=== PATIENT | male | born 1950 | race Caucasian/White ===

== ENCOUNTER 2016-05-21 08:01 | Inpatient (IN) | payer OTHER ==
--- NOTE | 2016-05-04 10:41 | PAT Medication Instructions ---
Service Date May 04, 2016. Current Home Medication List Aspirin (Aspirin Ec), 81 MG PO QAM Lisinopril (Zestril), 20 MG PO QAM Lisinopril/Hctz (Zestoretic 20MG/12.5MG), 1 TAB PO QAM Meloxicam (Mobic), 15 MG PO QPM Medication Instructions For Your Scheduled Surgery Meloxicam (Mobic), 15 MG PO QPM (will finish prior to surgery) Aspirin (Aspirin Ec), 81 MG PO QAM (hold 1 week prior to surgery per surgeon instructions) - Hold the following medications the morning of surgery: Lisinopril/Hctz (Zestoretic 20MG/12.5MG), 1 TAB PO QAM Lisinopril (Zestril), 20 MG PO QAM If you have any questions please call us at [phone] or [phone] ( Sharri) or [phone]
--- NOTE | 2016-05-04 11:25 | DIAGNOSTIC IMAGING REPORT ---
CHEST PREADMISSION(PA/LAT) CLINICAL HISTORY: Preoperative evaluation. COMPARISON STUDY: No previous studies for comparison. FINDINGS: Lung volumes are normal. Lungs are clear. There is no pneumothorax or pleural effusion. Cardiac size is normal. Mediastinal contours are normal. There is no evidence of pulmonary edema. IMPRESSION: No acute cardiopulmonary findings. Electronically signed by: Domingo Jovel M.D. 05/04/2016 11:24 AM Dictated Date/Time: 05/04/2016 11:24 AM
[2016-05-04 11:43] LABS: BASO % 0.5 %; BASO ABS # 0.03 K/uL (0-0.2); COMPLETE YES; EOS % 3.7 %; HEMATOCRIT 44.8 % (42-52); IG% 0.3 %; LYMPH % 16.2 %; LYMPH ABS # 1.02 K/uL (1.2-3.4); MEAN CELL VOLUME 94.3 fL (80-100); MEAN CORPUSCULAR HEMOGLOBIN 33.7 pg (25-34); MEAN CORPUSCULAR HGB CONC 35.7 g/dl (32-36); MEAN PLATELET VOLUME 9.3 fL (7.4-10.4); MONO % 7.8 %; NEUT % 71.5 %; PLATELET COUNT 226 K/uL (130-400); RED BLOOD COUNT 4.75 M/uL (4.7-6.1); WHITE BLOOD COUNT 6.29 K/uL (4.8-10.8)
[2016-05-04 11:52] LABS: URINE APPEARANCE CLEAR (CLEAR); URINE BILIRUBIN NEG (NEG); URINE COLOR YELLOW; URINE NITRITE NEG (NEG); URINE SPECIFIC GRAVITY 1.007 (1.000-1.030); UROBILINOGEN NEG (NEG)
[2016-05-04 11:56] LABS: PROTHROMBIN TIME (PATIENT) 10.8 SECONDS (9.0-12.0)
[2016-05-04 12:02] LABS: BUN/CREATININE RATIO 16.2 (10-20); CALCIUM 9.5 mg/dl (8.5-10.1); CREATININE 1.1 mg/dl (0.60-1.40); POTASSIUM 4.1 mmol/L (3.5-5.1)
[2016-05-04 12:27] LABS: MANUAL MICROSCOPIC REQUIRED? NO; REVIEW REQ? NO
[2016-05-04 12:40] LABS: ESTIMATED AVERAGE GLUCOSE 100 mg/dl; HA1C FLAG Normal (Normal)
--- NOTE | 2016-05-20 10:22 | HISTORY & PHYSICAL EXAMINATION ---
DATE OF ADMISSION: 05/21/2016 CHIEF COMPLAINT: Right hip pain. HISTORY OF PRESENT ILLNESS: The patient is a 66-year-old gentleman seen and evaluated for severe right hip pain and disability. X-rays reveal severe osteoarthritis about the right hip. He takes tramadol for pain. He continues to have pain with activities of daily living. He has pain with prolonged weightbearing and standing activities. He has difficulty with any kneeling, bending, or squatting activities. He now desires to proceed with right total hip arthroplasty. PAST MEDICAL HISTORY: White coat hypertension, colonic polyps, obesity, hypertension. PAST SURGICAL HISTORY: Hernia repair as a child, colonoscopy. MEDICATIONS: Tramadol 50 mg 2 tabs q. 6 hours p.r.n. pain, Prinivil 20 mg daily, lisinopril/HCTZ 20/12.5 daily, amlodipine daily, aspirin 81 mg daily. ALLERGIES: No known drug allergies. SOCIAL HISTORY AND REVIEW OF SYSTEMS: Noncontributory. PHYSICAL EXAMINATION: GENERAL: Well-nourished, well-developed male who appears his stated age. HEAD, EYES, EARS, NOSE, AND THROAT: Normocephalic, atraumatic, extraocular movements intact, oropharynx pink and moist. NECK: Supple without adenopathy. LUNGS: Clear to auscultation bilaterally. HEART: Regular rate and rhythm. ABDOMEN: Soft, nontender, nondistended. EXTREMITIES: The upper extremities are within normal limits. The right hip demonstrates limited range of motion. There is severe limitation of internal/external rotation with pain at end range. X-RAYS: X-rays were reviewed. He has severe osteoarthritis about the right hip with complete loss of the joint space. There is evidence of subchondral sclerosis. There is osteophyte formation about the femoral head and acetabulum. ASSESSMENT: Right hip degenerative joint disease. PLAN: Risks versus benefits were discussed. Consent was obtained. The patient's primary care physician is Jerry Espana PA-C from [facility]. Will proceed with right total hip arthroplasty upon preoperative workup and medical clearance.
[~2016-05-21] VITALS: Ht 170.2 cm; Wt 87.0 kg
[2016-05-21] VITALS (10 sets, daily range): BP systolic 95–187; BP diastolic 62–88; PULSE 71–97; TEMP 36.3–36.7; O2SAT 95–100; Ht 170.2 cm; Wt 87.0 kg
[~2016-05-21 08:01] MED LIST: ACETAMINOPHEN 500 MG TAB PO SCH; AMLO5TAB2 PO; ASPI81TA28 PO; BUPIVACAINE 0.5 % 5 MG/1 ML PF 10ML VIAL ONE; CEFAZOLIN 2000 MG/60 ML D5W 60 ML IV SCH; CeleBREX 200 MG CAP PO SCH; DEXAMETHASONE 4 MG TAB PO SCH; FAMOTIDINE 20 MG TAB PO SCH; GABAPENTIN 300 MG CAP PO SCH; LACTATED RINGER'S 1000ML 1,000 ML IV SCH; LACTATED RINGER'S 1000ML IV SCH; LISI-725 PO; LISI-787 PO; MELO7.5T5 PO; METOCLOPRAMIDE HCL 10 MG TAB PO SCH; MIDAZOLAM HCL 1 MG/ML 2ML VIAL ONE; OXYCODONE HCL 10 MG TABCR (OXYCONTIN) PO SCH; ROPIVACAINE 5MG/ML 30 ML 150 MG, BUPIVACAINE/EPINEPHR 0.5% MPF 30 ML, KETOROLAC TROMETH... INFIL SCH; TRAM-10 PO
[2016-05-21] MEDS ORDERED: FENTANYL CITRATE INJ 50 MCG/1 ML 2 ML VIAL IV PRN (08:45)
[2016-05-21] MEDS ORDERED: ATROPINE SULFATE 0.1 MG/ML 5ML SYR IV PRN (08:45)
[2016-05-21] MEDS ORDERED: ONDANSETRON INJ 2 MG/ML 2 ML VIAL IV PRN ×2 (08:45→11:30)
[2016-05-21] MEDS ORDERED: EpHEDrine SULFATE INJ 50 MG/ML AMP IV PRN (08:45)
--- NOTE | 2016-05-21 09:10 | History & Physical Bridge Note ---
H&P Re-Evaluation Bridge Note: I have examined the patient, reviewed the History & Physical and in the interval since the performance of the History & Physical I have noted the following changes of clinical significance: No changes noted
[2016-05-21] MEDS: TRANEXAMIC ACID INJ 1,000 MG in SODIUM CHLORIDE 0.9% 100ML 100 ML IV SCH ×2 (09:18→14:06)
[2016-05-21] MEDS ORDERED: BACITRACIN 50000 UNIT VIAL ONE (09:36)
[2016-05-21] MEDS ORDERED: ORTHO JOINT ANESTHETIC ONE (09:36)
[2016-05-21] MEDS ORDERED: POVIDONE-IODINE OP SOLN 30 ML BTL ONE (09:36)
[2016-05-21] MEDS ORDERED: PROPOFOL IV EMULSION 10 MG/ML 20 ML VIAL IV ONE (10:21)
[2016-05-21] MEDS ORDERED: PHENYLEPHRINE 100MCG/ML 5ML SYR ONE (10:21)
[2016-05-21] MEDS ORDERED: EpHEDrine SULFATE 50MG/5ML SYR ONE (10:31)
[2016-05-21] MEDS ORDERED: PHENYLEPHRINE HCL INJ 10 MG/ML VIAL ONE (10:39)
--- NOTE | 2016-05-21 10:54 | [facility] Post Operative Brief Note ---
Immediate Operative Summary Operative Date May 21, 2016. Pre-Operative Diagnosis Right hip degenerative joint disease Post-Operative Diagnosis same as preoperative diagnosis Procedure(s) Performed Right Total Hip Arthroplasty uncemented Surgeon Dr. Werner Sheep Boner Surgeon(s) Norman Holguin PA-C Estimated Blood Loss 80ml Findings severe OA Specimens A. Right femoral head Disposition Recovery Room / PACU
--- NOTE | 2016-05-21 11:04 | OPERATIVE REPORT ---
DATE OF OPERATION: 05/21/2016 PREOPERATIVE DIAGNOSIS: Osteoarthritis right hip. POSTOPERATIVE DIAGNOSIS: Osteoarthritis right hip. PROCEDURE: Right connective total hip arthroplasty. SURGEON: Dr. Werner. PRODUCE RUNNER: Norman Holguin PA-C. ANESTHESIA: Spinal. COMPLICATIONS: None. OPERATION AND FINDINGS: PROCEDURE: Following induction of adequate spinal anesthesia, the patient was placed in left lateral decubitus position and right Ganesh-Langenbeck incision was made. Subcutaneous tissue was sharply dissected. Electrocautery used for hemostasis. The fascia was incised throughout the length of the wound and a engle scissor placed beneath the short external rotators. The pyriformis was tagged with #1 Vicryl. The short external rotators were divided from the posterior aspect of the femur using electrocautery. These were swept posteriorly. A T-capsulotomy incision was made and the hip was dislocated using a combination of flexion, adduction, and internal rotation. Exposure of the femoral neck with old-style Hohmann and a blunt Hohmann was carried out and a femoral rasp was utilized as a guide for making the appropriate level femoral neck cut. This bone fragment was removed and reserved on the back table. Next, attention was turned to the acetabulum where bone hook was used to retract the femur while the offset retractors were placed anterior and posteriorly. A double-angled Hohmann was placed in superior and anterior position exposing the acetabulum nicely. Acetabular labrum as well as posterior capsule elements were removed using a long knife and a long pickup. Fovea centralis was cleared of all soft tissue. Sequential reamings were carried up to a size 54 and decision was made to proceed with impaction of a size 54 trabecular metal cup. This was impacted and held using a single 35 mm bone screw. The acetabular liner was placed with 15 of elevated posterior wall in the superior and posterior position. Next, attention was turned to the femoral portion of the case where a Bovie and pickup was used to further clear short external rotators from their insertion on the femur. Box osteotome was used to gain access to the femoral canal and the T-handled rasp and a rattail rasp were used to further open and lateral the canal. Sequentially raspings were carried up to a size 5 which gave good fit and fill of the proximal femur. A trial reduction was carried out and size 5 offset femoral neck component was chosen as the size to be used. A -5 x 36 mm ceramic femoral head was impacted into position, +0 head was utilized. The trial reduction was stable in all degrees of rotation with no [id number] impingement. The hip was dislocated. The trial components were removed and the final femoral stem, neck, and femoral head combination were assembled on the back table and impacted into position. Hip was relocated. Range of motion checked once again successful and the wound was irrigated. The pyriformis repaired to the greater trochanter using #1 Vicryl [id number] suture. A Hemovac drain was placed and the fascia was closed using #1 Vicryl, subcutaneous tissue was closed using 0 Dexon, and skin was closed with valarie. Sterile dressing of Adaptic, 4 x 4's, ABDs, and foam tape was applied. The patient tolerated the procedure well. Recovery room stable. Due to the complex nature of the procedure, the entire surgery was performed with the operational assistance of Norman Holguin PA-C. The assistant in nursing, under direct supervision, was involved in the actual performance of all aspects of the surgical procedure including hemostasis, tissue retraction and incision, instrument management, patient positioning, and wound closure. I attest to the content of the Intraoperative Record and any orders documented therein. Any exceptio ns are noted below.
[2016-05-21] MEDS ORDERED: MAGNESIUM HYDROXIDE SUSP 30 ML UDC PO PRN (11:30)
[2016-05-21] MEDS ORDERED: DiphenhydrAMINE HCL 50 MG/ML VIAL IV PRN (11:30)
[2016-05-21] MEDS ORDERED: MoRPHine SULFATE 2 MG/ML CARP IV PRN (11:30)
[2016-05-21] MEDS ORDERED: ZOLPIDEM TARTRATE 5 MG TAB PO PRN (11:30)
[2016-05-21] MEDS ORDERED: TAMSULOSIN HCL 0.4 MG CAP PO PRN (11:30)
[2016-05-21] MEDS ORDERED: BISACODYL 10 MG SUPP PR PRN (11:30)
[2016-05-21] MEDS ORDERED: ALUMINUM/MAGNESIUM/SIMETH (MAALOX MAX) 30 ML UDC PO PRN (11:30)
--- NOTE | 2016-05-21 11:57 | DIAGNOSTIC IMAGING REPORT ---
AP PELVIS, CROSSTABLE LATERAL RIGHT HIP History: Right total hip arthroplasty. Degenerative arthritis. Postop. FINDINGS: The patient is status post a right total hip arthroplasty. The hardware is intact. No fracture or dislocation. Skin valarie and surgical drains are in place. IMPRESSION: Right total hip arthroplasty. No evidence for hardware complication Electronically signed by: Norman Alexander M.D. 05/21/2016 11:56 AM Dictated Date/Time: 05/21/2016 11:55 AM
[2016-05-21] MEDS ORDERED: MoRPHine SULFATE 10 MG/ML CARP/VIAL IV PRN (13:15)
[2016-05-21] MEDS ORDERED: MoRPHine SULFATE 4 MG/ML 1 ML CARP\\VIAL IV PRN (13:15)
[2016-05-21] MEDS: FERROUS GLUCONATE 324 MG TAB PO SCH ×2 (13:58→17:21)
[2016-05-21] MEDS: D5W AND 1/2NSS + 20MEQ KCL 1,000 ML IV SCH (13:58)
[2016-05-21] MEDS: ACETAMINOPHEN 500 MG TAB PO SCH ×2 (14:06→22:29)
--- NOTE | 2016-05-21 14:22 | Anesthesiology Progress Note ---
Anesthesia Post Op Note Date & Time May 21, 2016 at 14:22 Vital Signs Pain Intensity: 1.0 Vital Signs Past 12 Hours Date Time Temp Pulse Resp B/P Pulse Ox O2 Delivery O2 Flow Rate FiO2 05/21/16 14:10 98 Nasal Cannula 2.0 05/21/16 13:55 36.4 86 16 134/78 98 Nasal Cannula 2.0 85 05/21/16 13:02 71 18 95/62 100 Nasal Cannula 3.0 05/21/16 12:30 99 Nasal Cannula 3.0 05/21/16 12:30 36.4 74 16 99/63 99 Nasal Cannula 3.0 05/21/16 12:24 36.9 05/21/16 12:22 71 16 100 05/21/16 12:22 71 16 05/21/16 12:19 116/73 05/21/16 12:17 74 19 100 05/21/16 12:17 75 19 05/21/16 12:14 116/71 05/21/16 12:12 70 17 100 05/21/16 12:12 71 17 05/21/16 12:09 91/73 05/21/16 12:07 71 17 05/21/16 12:07 71 17 100 05/21/16 12:04 138/70 05/21/16 12:02 69 16 100 05/21/16 12:02 69 16 05/21/16 11:57 70 15 100 05/21/16 11:57 70 15 05/21/16 11:54 120/86 05/21/16 11:52 70 17 100 05/21/16 11:52 70 17 05/21/16 11:51 36.9 05/21/16 11:50 73 18 05/21/16 11:50 73 18 100 05/21/16 11:49 126/72 05/21/16 11:45 80 20 05/21/16 11:45 81 20 100 05/21/16 11:44 109/94 05/21/16 11:40 84 18 104/68 05/21/16 11:40 85 18 104/68 100 05/21/16 11:35 76 19 100 05/21/16 11:35 75 19 05/21/16 11:34 107/62 05/21/16 11:30 Nasal Cannula 3 2/23/17 11:30 77 18 05/21/16 11:30 77 18 100 05/21/16 11:29 103/63 05/21/16 11:25 80 05/21/16 11:25 80 20 100 05/21/16 11:24 122/63 05/21/16 11:20 36.4 80 16 99/61 100 Mask 10 05/21/16 11:20 81 20 100 05/21/16 11:20 81 05/21/16 08:30 36.7 97 20 187/88 97 Room Air Notes Mental Status: alert / awake / arousable, participated in evaluation Pt Amnestic to Procedure: Yes Nausea / Vomiting: adequately controlled Pain: adequately controlled Airway Patency, RR, SpO2: stable & adequate BP & HR: stable & adequate Hydration State: stable & adequate Neuraxial Anesthesia: was administered, sensory block is resolving Anesthetic Complications: no major complications apparent
[2016-05-21] MEDS: OXYCODONE HCL IR 5 MG TAB (IMMEDIATE RELEASE) PO PRN ×2 (17:02→21:12)
[2016-05-21] MEDS: CEFAZOLIN IV 2,000 MG in DEXTROSE 5% 50ML 50 ML IV SCH (17:21)
[2016-05-21] MEDS: DOCUSATE SODIUM 100 MG CAP PO SCH (21:10)
[2016-05-21] MEDS: ASPIRIN 81 MG ECTAB PO SCH (21:10)
[2016-05-21] MEDS: SENNA 8.6 MG TAB PO SCH (21:11)
[2016-05-22] VITALS (7 sets, daily range): BP systolic 150–155; BP diastolic 74–91; PULSE 66–78; TEMP 36.4–36.7; O2SAT 96–100
[2016-05-22] MEDS: D5W AND 1/2NSS + 20MEQ KCL 1,000 ML IV SCH (00:01)
[2016-05-22] MEDS: CEFAZOLIN IV 2,000 MG in DEXTROSE 5% 50ML 50 ML IV SCH (02:00)
[2016-05-22] MEDS: OXYCODONE HCL IR 5 MG TAB (IMMEDIATE RELEASE) PO PRN ×2 (02:05→13:52)
[2016-05-22] MEDS: ACETAMINOPHEN 500 MG TAB PO SCH ×3 (05:48→21:50)
[2016-05-22 05:57] LABS: COMPLETE YES; HEMATOCRIT 37.2 % (42-52); IG% 0.2 %; LYMPH % 4.4 %; LYMPH ABS # 0.63 K/uL (1.2-3.4); MEAN CELL VOLUME 91.4 fL (80-100); MEAN CORPUSCULAR HEMOGLOBIN 32.9 pg (25-34); MEAN PLATELET VOLUME 8.9 fL (7.4-10.4); MONO % 8.5 %; NEUT % 86.9 %; PLATELET COUNT 225 K/uL (130-400); RED BLOOD COUNT 4.07 M/uL (4.7-6.1); WHITE BLOOD COUNT 14.25 K/uL (4.8-10.8)
[2016-05-22 06:30] LABS: BUN/CREATININE RATIO 15.9 (10-20); CALCIUM 8.7 mg/dl (8.5-10.1); CREATININE 0.91 mg/dl (0.60-1.40); POTASSIUM 4.4 mmol/L (3.5-5.1)
--- NOTE | 2016-05-22 07:50 | Orthopedic Progress Note ---
Orthopedic Progress Note Date of Service May 22, 2016. Subjective Post OP Day: 1 Reports: feeling well Objective N/V intact, dressing C/D/I (Hemovac in place), toes mobile Date Time Temp Pulse Resp B/P Pulse Ox O2 Delivery O2 Flow Rate FiO2 05/22/16 03:28 36.7 78 18 155/91 98 Room Air 05/22/16 00:00 98 Room Air 05/21/16 23:18 36.4 78 18 159/87 97 Nasal Cannula 2.0 05/21/16 22:06 36.4 73 17 141/82 95 Nasal Cannula 2.0 05/21/16 19:40 Nasal Cannula 2.0 05/21/16 18:27 36.4 92 16 165/84 97 Nasal Cannula 2.0 05/21/16 15:32 36.3 88 17 124/86 96 Nasal Cannula 3.0 05/21/16 14:30 90 16 135/81 99 05/21/16 14:10 98 Nasal Cannula 2.0 05/21/16 13:55 36.4 86 16 134/78 98 Nasal Cannula 2.0 85 05/21/16 13:02 71 18 95/62 100 Nasal Cannula 3.0 05/21/16 12:30 99 Nasal Cannula 3.0 05/21/16 12:30 36.4 74 16 99/63 99 Nasal Cannula 3.0 05/21/16 12:24 36.9 05/21/16 12:22 71 16 100 05/21/16 12:22 71 16 05/21/16 12:19 116/73 05/21/16 12:17 74 19 100 05/21/16 12:17 75 19 05/21/16 12:14 116/71 05/21/16 12:12 70 17 100 05/21/16 12:12 71 17 05/21/16 12:09 91/73 05/21/16 12:07 71 17 05/21/16 12:07 71 17 100 05/21/16 12:04 138/70 05/21/16 12:02 69 16 100 05/21/16 12:02 69 16 05/21/16 11:57 70 15 100 05/21/16 11:57 70 15 05/21/16 11:54 120/86 05/21/16 11:52 70 17 100 05/21/16 11:52 70 17 05/21/16 11:51 36.9 05/21/16 11:50 73 18 05/21/16 11:50 73 18 100 05/21/16 11:49 126/72 05/21/16 11:45 80 20 05/21/16 11:45 81 20 100 05/21/16 11:44 109/94 05/21/16 11:40 84 18 104/68 05/21/16 11:40 85 18 104/68 100 05/21/16 11:35 76 19 100 05/21/16 11:35 75 19 05/21/16 11:34 107/62 05/21/16 11:30 Nasal Cannula 3 05/21/16 11:30 77 18 05/21/16 11:30 77 18 100 05/21/16 11:29 103/63 05/21/16 11:25 80 05/21/16 11:25 80 20 100 05/21/16 11:24 122/63 05/21/16 11:20 36.4 80 16 99/61 100 Mask 10 05/21/16 11:20 81 20 100 05/21/16 11:20 81 05/21/16 08:30 36.7 97 20 187/88 97 Room Air Laboratory Results 24 Hours: Test 05/22/16 05:46 White Blood Count 14.25 K/uL Red Blood Count 4.07 M/uL Hemoglobin 13.4 g/dL Hematocrit 37.2 % Mean Corpuscular Volume 91.4 fL Mean Corpuscular Hemoglobin 32.9 pg Mean Corpuscular Hemoglobin Concent 36.0 g/dl Platelet Count 225 K/uL Mean Platelet Volume 8.9 fL Neutrophils (%) (Auto) 86.9 % Lymphocytes (%) (Auto) 4.4 % Monocytes (%) (Auto) 8.5 % Eosinophils (%) (Auto) 0.0 % Basophils (%) (Auto) 0.0 % Neutrophils # (Auto) 12.38 K/uL Lymphocytes # (Auto) 0.63 K/uL Monocytes # (Auto) 1.21 K/uL Eosinophils # (Auto) 0.00 K/uL Basophils # (Auto) 0.00 K/uL Assessment & Plan Assessment: 66 yo male stable POD #1 s/p right HUGH Plan: 1. Med management 2. DVT prophylaxis- ASA, TEDs, SCDs 3. PT/OT 4. D/C planning- home w/ HH
--- NOTE | 2016-05-22 07:52 | Discharge Instructions ---
Discharge Instructions Admission Reason for Admission: Right Hip Osteoarthritis Discharge Discharge Diagnosis / Problem: Right hip arthritis Discharge Goals Goal(s): Decrease discomfort, Improve function Activity Recommendations Activity Limitations: as noted below Weightbearing Status: Right weightbearing (as tolerated) . Instructions / Follow-Up Instructions / Follow-Up ACTIVITY RECOMMENDATIONS: SELF CARE INSTRUCTIONS AFTER TOTAL HIP REPLACEMENT Until the incision and soft tissues around your hip have healed, there is a possibility that the hip prosthesis could dislocate. A. Observe the following precautions to prevent dislocation: 1. Don't bend your hip greater than 90 degrees. 2. Avoid crossing your legs or ankles while standing or lying. 3. Sit with your feet placed 6 inches apart. 4. When sitting, keep your knees below your hips. Sit on a firm surface, avoid deep, soft chairs and couches. Use an elevated toilet seat in the bathroom. 5. Don't bend over at the waist. Use a long handled shoehorn and a sock aid to help you put on your shoes and socks. A senior microsoft consultant can help you pick and shovel worker objects that are too high or too low to reach. 6. Keep car riding to a minimum for at least one month after surgery. B. Your balance may be shaky for a while. Use crutches or a walker until directed by your doctor. C. Use hand rails when walking on stairs. D. Wear low heeled shoes with non-slip soles. E. Be sure that your floors are free of things that could trip you - throw rugs , electrical cords, small objects. Avoid wet and waxed floors, especially with crutches and canes. F. Try to walk several times a day with rest periods between. G. Continue with all the exercises taught to you in the hospital. Again, make walking a part of your daily routine. SPECIAL CARE INSTRUCTIONS: VERY IMPORTANT TO READ AND REVIEW A. You may still be at risk for phlebitis and blood clots. 1. Wear surgical stockings (AVINASH hose) for 2 weeks after surgery to improve circulation and reduce swelling. 2. Take Aspirin 81mg twice daily for 4 weeks or as directed by your doctor. This is your blood thinner. 3. High risk patients may be prescribed a stronger blood thinner if necessary. 4. If you are on Coumadin normally, your family doctor/job captain should monitor your blood work. Expect a phone call the day of or the day after bloodwork is drawn to adjust your dosage. B. You must take antibiotics before having dental work, bladder, bowel and other surgery. Your doctor will provide you with a permanent card to carry describing precautions. C. Call [facility] if you have a fever, redness or swelling around the incision, cloudy drainage from incision, or sudden increase in pain in your hip, not relieved by your regular pain medication. D. Please call the office at if you have any concerns or questions about your operation or recovery. * YOU MAY SHOWER, NO TUB BATHS UNTIL CLEARED BY YOUR DOCTOR. * WEAR AVINASH HOSE 20 HOURS PER DAY FOR 2 WEEKS. * YOU SHOULD USE A WALKER OR CRUTCHES FOR 2-4 WEEKS. THIS WILL HELP PREVENT STRAIN ON YOUR HIP MUSCLE AND ALLOW IT TO HEAL PROPERLY. YOU MAY WEAN TO A CANE TOLERATED. * MOST PATIENTS WILL HAVE HOME NURSING FOR THERAPY. IF YOU DECIDE TO DO OUTPATIENT PHYSICAL THERAPY, PLEASE SCHEDULE THIS 3 TIMES PER WEEK. Silverlon- This is a large adhesive bandage that contains silver ions. This helps your incision heal by fighting off bacteria and protecting it from the outside environment. You are permitted to shower with this dressing. This will remain on your incision for 7 days and then should be removed. Some visible blood or drainage through the dressing window is normal. If there is significant drainage or leaking noted before the 7 days notify your doctor's office immediately. Once removed, keep incision clean and dry. If there is any drainage or redness noted, please call your surgeon. FOLLOW UP VISIT: If appointment is not already scheduled: Please call [facility] to make a follow-up appointment for 2 weeks after your surgery at . Current Hospital Diet Patient's current hospital diet: Regular Diet Discharge Diet Recommended Diet: Regular Diet Procedures Procedures Performed: Right Total Hip Arthroplasty uncemented Pending Studies Studies pending at discharge: no Laboratory Results Hemoglobin A1c Test 05/04/16 10:46 Range/Units Estimated Average Glucose 100 mg/dl Hemoglobin A1c 5.1 4.5-5.6 % Medical Emergencies . Who to Call and When: Medical Emergencies: If at any time you feel your situation is an emergency, please call 911 immediately. . Non-Emergent Contact Non-Emergency issues call your: Surgeon Call Non-Emergent contact if: temperature is above 101.5, your pain is not controlled, wound has increased drainage, wound has increased redness . "Provider Documentation" section prepared by Simon Baez PA-C. VTE Core Measure Inpt VTE Proph given/why not?: Other Anticoagulation (ASA 81mg bid), T.E.D. Stockings, SCD's [place] Drug Monitoring Program Search Results: patient reviewed within database
[2016-05-22] MEDS: ASPIRIN 81 MG ECTAB PO SCH ×2 (08:14→21:50)
[2016-05-22] MEDS: DOCUSATE SODIUM 100 MG CAP PO SCH ×2 (08:14→21:49)
[2016-05-22] MEDS: LISINOPRIL 20 MG TAB PO SCH (08:15)
[2016-05-22] MEDS: LISINOPRIL/HCTZ 20/12.5MG TAB PO SCH (08:15)
[2016-05-22] MEDS: MULTIVITAMIN TAB PO SCH (08:15)
[2016-05-22] MEDS: AMLODIPINE BESYLATE 5 MG TAB PO SCH (08:15)
[2016-05-22] MEDS: FERROUS GLUCONATE 324 MG TAB PO SCH ×3 (08:15→18:17)
[2016-05-22] MEDS: PANTOprazole SOD 40 MG TAB PO SCH (08:15)
--- NOTE | 2016-05-22 08:20 | Anesthesiology Progress Note ---
Anesthesia Post Op Note Date & Time May 22, 2016 at 08:19 Vital Signs Vital Signs Past 12 Hours Date Time Temp Pulse Resp B/P Pulse Ox O2 Delivery O2 Flow Rate FiO2 05/22/16 08:15 36.4 66 16 150/80 98 Room Air 05/22/16 07:45 Room Air 05/22/16 03:28 36.7 78 18 155/91 98 Room Air 05/22/16 00:00 98 Room Air 05/21/16 23:18 36.4 78 18 159/87 97 Nasal Cannula 2.0 05/21/16 22:06 36.4 73 17 141/82 95 Nasal Cannula 2.0 Notes Mental Status: alert / awake / arousable, participated in evaluation Pt Amnestic to Procedure: Yes Nausea / Vomiting: adequately controlled Pain: adequately controlled Airway Patency, RR, SpO2: stable & adequate BP & HR: stable & adequate Hydration State: stable & adequate Neuraxial Anesthesia: was administered, sensory block resolved Anesthetic Complications: no major complications apparent
[2016-05-22] MEDS ORDERED: ACET-1138 PO (16:36)
[2016-05-22] MEDS ORDERED: CLC100 PO (16:36)
[2016-05-22] MEDS ORDERED: ASPEC81 PO (16:36)
[2016-05-22] MEDS ORDERED: RXC5 PO (16:36)
[2016-05-22] MEDS ORDERED: ONDA8TAB6 PO (16:36)
[2016-05-22] MEDS: SENNA 8.6 MG TAB PO SCH (21:50)
[2016-05-23 05:57] VITALS: BP 176/91; PULSE 70; TEMP 36.6; O2SAT 97
[2016-05-23] MEDS: ACETAMINOPHEN 500 MG TAB PO SCH (06:07)
--- NOTE | 2016-05-23 07:11 | Orthopedic Progress Note ---
Orthopedic Progress Note Date of Service May 23, 2016. Subjective Post OP Day: 2 Reports: pain controlled w PO medications, Denies: SOB, calf pain, chest pain, complaints, feeling well, light headedness, nausea / vomiting Objective calves soft nontender, N/V intact, hip located, capillary refill less than 2 sec., dressing C/D/I, A&O x3, toes mobile Date Time Temp Pulse Resp B/P Pulse Ox O2 Delivery O2 Flow Rate FiO2 05/23/16 05:57 36.6 70 16 176/91 97 Room Air 05/23/16 00:18 Room Air 05/22/16 23:45 36.6 77 17 150/84 96 Room Air 05/22/16 16:00 100 Room Air 05/22/16 14:58 36.5 78 18 154/74 100 Room Air 05/22/16 09:05 98 Room Air 05/22/16 08:15 36.4 66 16 150/80 98 Room Air 05/22/16 07:45 Room Air Assessment & Plan Assessment: 66 yo male stable POD #2 s/p right HUGH Plan: 1. Med management 2. DVT prophylaxis- ASA, TEDs, SCDs 3. PT/OT 4. D/C planning- home w/ HH Discharge Planning Discharge Planning: home with home health DVT Prophylaxis: TEDs, SCDs, ASA Therapy: Physical Therapy
[2016-05-23] MEDS: ASPIRIN 81 MG ECTAB PO SCH (07:31)
[2016-05-23] MEDS: AMLODIPINE BESYLATE 5 MG TAB PO SCH (07:31)
[2016-05-23] MEDS: PANTOprazole SOD 40 MG TAB PO SCH (07:31)
[2016-05-23] MEDS: FERROUS GLUCONATE 324 MG TAB PO SCH (07:32)
[2016-05-23] MEDS: MULTIVITAMIN TAB PO SCH (07:32)
[2016-05-23] MEDS: LISINOPRIL 20 MG TAB PO SCH (07:32)
[2016-05-23] MEDS: LISINOPRIL/HCTZ 20/12.5MG TAB PO SCH (07:32)
[2016-05-23] MEDS: DOCUSATE SODIUM 100 MG CAP PO SCH (07:33)
[2016-05-23] MEDS: OXYCODONE HCL IR 5 MG TAB (IMMEDIATE RELEASE) PO PRN (07:38)
[2016-05-23 07:57] VITALS: BP 153/95; PULSE 78; TEMP 36.8; O2SAT 100
[2016-05-23 08:03] VITALS: O2SAT 100
[2016-05-23 10:22] VITALS: BP 153/95; PULSE 78; TEMP 36.8; O2SAT 100
--- NOTE | 2016-05-28 00:51 | DISCHARGE SUMMARY ---
DISCHARGE DIAGNOSIS: Degenerative joint disease, right hip. SECONDARY DIAGNOSES: Hypertension, colonic polyps, obesity. CONSULTATIONS: None. COMPLICATIONS: None. PROCEDURE: Right total hip arthroplasty performed by Dr. Werner on 05/21/2016. BRIEF HISTORY: As dictated in the history and physical. HOSPITAL SUMMARY: The patient was admitted on the above date and had the above-noted surgery performed which he tolerated well. On his first postoperative day, he was feeling well and had no complaints. Neurovascularly was intact. Dressings were clean, dry and intact. Toes were mobile. Vital signs were stable. He was afebrile and hemoglobin was 13.4. He was started on physical therapy protocol and continued on DVT prophylaxis and pain management. By his second postoperative day, he was having good pain control. He had no complaints. Calves were soft, nontender. Neurovascularly was intact. Hip was located. Dressings were clean, dry and intact. Toes were mobile. Vital signs were stable and he was afebrile. Blood pressures were fluctuating off and on, to be expected from surgery, but he was otherwise feeling well and plans were for him to go home on 05/23/2016. For further review, please see chart. LABORATORY AND X-RAY DATA: As per chart. DISCHARGE INSTRUCTIONS: The patient was discharged to home in satisfactory condition on 05/23/2016. DIET: Regular. ACTIVITY: Weightbearing as tolerated in right lower extremity. Follow HUGH instruction sheets and special care instructions. The patient to follow up with Dr. Werner in 2 weeks. The patient to call for appointment if one has not been made for you. DISCHARGE MEDICATIONS: Acetaminophen 1000 mg p.o. q. 8 hours, aspirin 81 mg p.o. b.i.d., Colace 100 mg p.o. b.i.d., Zofran 8 mg p.o. q. 8 hours p.r.n., oxycodone 5-10 mg p.o. q. 4 hours p.r.n., resume taking amlodipine 5 mg p.o. daily, lisinopril 20 mg p.o. q.a.m. and Zestoretic 20/12.5 one tab p.o. q.a.m. As far as his aspirin goes, 30 days on the b.i.d. dosing and after 30 days, resume once daily dosing of aspirin. Stop taking meloxicam and tramadol.
== END 2016-05-23 11:54 | disposition home health service (06) | DRG 470 ==
LOC: ENRESERVTM → ENRESERVDT → C.ACU 08:01 → C.3E 08:30
PROC: 0SR90JA Replacement of Right Hip Joint with Synthetic Substitute, Uncemented, Open Approach (ICD-10-PCS; principal; 2016-05-21 10:00)
DX: M16.11 Unilateral primary osteoarthritis, right hip (principal); I10 Essential (primary) hypertension; E66.9 Obesity, unspecified; Z68.30 Body mass index [BMI] 30.0-30.9, adult; Z86.010 Personal history of colon polyps; Z98.890 Other specified postprocedural states; Z79.82 Long term (current) use of aspirin; Z79.899 Other long term (current) drug therapy